=== PATIENT | male | born 1960 | race Caucasian/White ===

== ENCOUNTER 2016-10-18 09:06 | Emergency (ER) | payer OTHER ==
[~2016-10-18] VITALS: Wt 82.0 kg
[~2016-10-18 09:06] MED LIST: AMLO-147 PO; ASPI-664 PO; BENA20TA48 PO; BUPR200T PO; CARI350T PO; CEPH500C PO; CLIN-73 PO; DOXE50CA PO; GABA300C16 PO; HYDR-762 PO; IBUP-1542 PO; IBUP800T25 PO; LAMO150T PO; OXYC-209 PO; SERT50TA PO; TRAM50TA2 PO; ZOC20 PO
[2016-10-18] MEDS ORDERED: SOD CHLORIDE 0.9% 1,000 ML IV STA (10:47)
[2016-10-18] MEDS ORDERED: CLINDAMYCIN 600 MG/D5W (PMX) 50 ML IVPB SCH (11:00)
[2016-10-18] MEDS ORDERED: CLINDAMYCIN 300 MG INJ IM ONE (11:30)
[2016-10-18 11:32] LABS: ALBUMIN 3.9 g/dl (3.3-4.9)
[2016-10-18 11:33] LABS: BASOPHIL # 0.1 10^3/ul (0.0-0.1); BASOPHILS % 0.6 % (0.0-2.0); EOSINOPHILS # 0.3 10^3/ul (0.0-0.5); HEMATOCRIT 39.4 % (42.0-52.0); LYMPHOCYTES # 2.1 10^3/ul (0.8-2.9); LYMPHOCYTES % 16.3 % (15.0-51.0); MEAN CORPUSCULAR HEMOGLOBIN 29.7 pg (29.0-33.0); MEAN PLATELET VOLUME 8.4 fl (7.4-10.4); MONOCYTES % 7.9 % (0.0-11.0); NEUTROPHIL # 9.5 10^3/ul (1.6-7.5); NEUTROPHILS % 73.2 % (39.0-77.0); PLATELET COUNT 348 10^3/UL (140-440); POTASSIUM 5.1 mmol/L (3.5-5.1); RED BLOOD COUNT 4.37 10^6/ul (4.70-6.10); RED CELL DISTRIBUTION WIDTH 16.2 % (11.5-14.5); UNCORRECTED WBC 12.9 10^3/ul (4.8-10.8); WHITE BLOOD COUNT 12.9 10^3/ul (4.8-10.8)
[2016-10-18 11:35] LABS: ALBUMIN/GLOBULIN RATIO 1.25; BILIRUBIN,INDIRECT 0.1 mg/dl (0-1.1); BILIRUBIN,TOTAL 0.1 mg/dl (0.2-1.3); CALCIUM 9.2 mg/dl (8.4-10.2); CREATININE 0.82 mg/dl (0.61-1.24)
[2016-10-18 11:36] LABS: CONDITION 1; LH ANALYZER COMMENTS 1
[2016-10-18] MEDS ORDERED: CEPH-443 PO (11:55)
[2016-10-18] MEDS ORDERED: CLIN-73 PO (11:55)
[2016-10-18 12:18] VITALS: BP 160/82; PULSE 78; RESP 20; TEMP 98.2
[2016-10-18] MEDS ORDERED: DIPHTH/TET/ACEL PERTUSS (ADULT) 0.5 ML VIAL IM* ONE (12:30)
--- NOTE | 2016-10-18 13:45 | ERD ---
DATE OF SERVICE: 10/18/2016 HISTORY OF PRESENT ILLNESS: The patient is a 55-year-old male coming in complaining of an abscess t o his right antecubital space and mid back. Patient states it has been there for the last 4 weeks. He has been seen by his primary doctor and given Bactrim. He has been taking Bactrim for 2 weeks. He has not missed a dose. He has no fevers. He states that there is no improvement to the abscess . He is right hand dominant. He does not recall his last tetanus shot. He has not taken medicatio ns today. He states he has occasional chills, but denies any fevers. MEDICAL HISTORY: Orthopedic complications and surgeries. ALLERGIES TO MEDICATIONS: DENIES. SURGICAL HISTORY: Orthopedic surgery. SOCIAL HISTORY: He uses IV drugs. REVIEW OF SYSTEMS: A 12-point review of systems was done. Refer to HPI for positives, all other sy stems negative. PHYSICAL EXAMINATION VITAL SIGNS: Temperature is 98.9, pulse 88, blood pressure is 170/85, respiratory rate 20, O2 satur ation 99% on room air. Pain intensity 8/10. GENERAL: The patient is well-appearing, well-nourished, no acute distress. HEART: Regular rate and rhythm. No murmurs, clicks, rubs or gallops. No S3 or S4. CHEST: Clear to auscultation bilaterally. There are no rales, wheezes or rhonchi. HEENT: Atraumatic. Conjunctivae are pink. Pupils equal, round, and reactive to light. There is no s cleral icterus. Tympanic membranes clear bilaterally. Oropharynx clear. No nystagmus or photophobia . EXTREMITIES: Equal pulses bilaterally. There is no peripheral clubbing, cyanosis or edema. No focal swelling or erythema. Full range of motion. Grossly neurovascularly intact. SKIN: There is a fluctuant, erythematous mass noted on the right antecubital space. No lymphatic s treaking. Compartments are soft. Pulses intact. EMERGENCY ROOM COURSE: This case was reviewed with Dr. Desir, given this is technically a failed outpatient antibiotic treatment for abscess; however, the patient has not been receiving broad spec trum antibiotics and so I did not feel that there was indication for admission at this time. Dr. Luh garcia also agreed with the assessment and plan. Patient will have blood work drawn as well as cult ures, and given antibiotics in the ER, with discharge of stronger broad spectrum antibiotics and abiola se followup. Blood work was drawn in the ER. Patient's CBC showed a white count of 12.9 with no shift. CMP was within normal limits. Patient's blood was sent for culture. The patient also received an IM inject ion of clindamycin while in the ER. An and I and D was performed. A small amount of 1 mL of plain lidocaine was injected superficially into the skin. A vertical incision was made and purulent disch arge was extracted from the site. Given there is high vasculature in that area, no undermining was done to break up locules. Site was re-cleaned and pressure bandage was applied. Also, tetanus was given in the ER. DIAGNOSIS: Abscess. MEDICAL DECISION MAKING: Patient does not have signs of lymphatic infection. The patient is afebri le and does not have a significant white count seen on CBC. I did not feel that there was indicatio n for IV antibiotics with admission at this time; however, patient was given strict ER precautions t o return in 2 days to evaluate, or sooner should symptoms change or worsen. DISCHARGE: The patient is discharged stable. Patient given a prescription for clindamycin and Kefl ex, and told to continue taking Bactrim at home. Patient was told if symptoms progress or worsen to return to the ER. All other questions answered at time of discharge. Discharge summary given at t he time of departure. Patient understood and complied with plan. Dictated By: MASON COULTER/LISBETH Conf#: [id number] DID#: [id number]
== END 2016-10-18 12:19 | disposition home or self-care (01) ==
LOC: FTE 09:06
DX: L02.212 Cutaneous abscess of back [any part, except buttock and flank] (principal); F17.210 Nicotine dependence, cigarettes, uncomplicated; I10 Essential (primary) hypertension; Z23 Encounter for immunization
CPT/HCPCS: 10060; 36415; 80053; 85025; 87040; 90471; 90715; 96372; J7030; Z7502; Z7610

== ENCOUNTER 2016-12-04 20:56 | Inpatient (IN) | payer OTHER ==
[~2016-12-04] VITALS: Ht 167.6 cm; Wt 78.0 kg
[~2016-12-04 20:56] MED LIST changes: +CEPH-443 PO; +SIMV20TA2 PO; -ZOC20 PO
[2016-12-04] MEDS ORDERED: ONDANSETRON 4 MG INJ IV STA (22:08)
[2016-12-04] MEDS ORDERED: morphine 4 MG/ML VIAL IV STA (22:08)
[2016-12-04 22:57] LABS: ADD SCAN DIFF NO
[2016-12-04 22:59] LABS: BASOPHIL # 0.1 10^3/ul (0.0-0.1); HEMATOCRIT 36.8 % (42.0-52.0); HEMOGLOBIN 11.7 g/dl (14.0-18.0); LYMPHOCYTES # 1.9 10^3/ul (0.8-2.9); LYMPHOCYTES % 23.5 % (15.0-51.0); MEAN CORPUSCULAR HEMOGLOBIN 29.6 pg (29.0-33.0); MEAN CORPUSCULAR HGB CONC 31.8 g/dl (32.0-37.0); MEAN CORPUSCULAR VOLUME 93.2 fl (82.0-101.0); MEAN PLATELET VOLUME 10.9 fl (7.4-10.4); MONOCYTE # 1.3 10^3/ul (0.3-0.9); NEUTROPHIL # 4.9 10^3/ul (1.6-7.5); NEUTROPHILS % 59.4 % (39.0-77.0); PLATELET COUNT 248 10^3/UL (140-415); RED BLOOD COUNT 3.95 10^6/ul (4.70-6.10); RED CELL DISTRIBUTION WIDTH 14.1 % (11.5-14.5); WHITE BLOOD COUNT 8.2 10^3/ul (4.8-10.8)
[2016-12-04 23:13] LABS: ALBUMIN 4.3 g/dl (3.3-4.9)
[2016-12-04 23:14] LABS: POTASSIUM 3.8 mmol/L (3.5-5.1)
[2016-12-04 23:16] LABS: BILIRUBIN,INDIRECT 0.4 mg/dl (0-1.1); BILIRUBIN,TOTAL 0.4 mg/dl (0.2-1.3); CREATININE 2.37 mg/dl (0.61-1.24)
[2016-12-04 23:17] LABS: ALBUMIN/GLOBULIN RATIO 1.13; CALCIUM 9.6 mg/dl (8.4-10.2); TOTAL PROTEIN 8.1 g/dl (6.1-8.1)
[2016-12-04 23:26] LABS: INR 1.08; PT RATIO 1.1
[2016-12-04 23:27] LABS: PARTIAL THROMBOPLASTIN TIME 29.6 Sec (25.0-35.0)
--- NOTE | 2016-12-04 23:37 | RADRPT ---
PROCEDURE: CT brain without contrast CLINICAL INDICATION: Status post fall. Post traumatic headaches. TECHNIQUE: A CT of the brain was performed utilizing axial sections from the skull base through th e vertex without contrast. Sagittal and coronal images were also reformatted. The exam CTDIvol = 43. 68 mGy and DLP = 810.25 mGy-cm. COMPARISON: 04/10/2016 FINDINGS: No acute intracranial hemorrhage is identified. There is no mass effect or midline shift. No extra -axial fluid collection is seen. The ventricles and sulci are within normal limits for size and con figuration. The density of the brain is within normal limits. Mccauley-white differentiation is preser jennifer. The osseous structures are unremarkable. The mastoid air cells and visualized paranasal sinuses are clear. RPTAT:HJJR IMPRESSION: Unremarkable noncontrast CT of the brain without change from 04/10/2016. Physician Ryan Date Time Electronically viewed and signed by Physician Ryan on 12/04/2016 23:36 /
--- NOTE | 2016-12-04 23:43 | RADRPT ---
PROCEDURE: CT cervical spine without contrast. CLINICAL INDICATION: Injury, status post fall. Post traumatic neck pain TECHNIQUE: CT of the cervical spine without contrast was performed. Axial images were obtained th rough the cervical spine and reformatted at 1.25 mm slice thickness. Coronal and sagittal images wer e reformatted. Exam CTDIvol = 22.33 mGy and DLP = 569.21 mGy-cm. COMPARISON: None available. FINDINGS: Vertebral bodies: Anterior fusion plate and screws at C5, C6 and C7 are present. Axial stature is p reserved at every level as is the lordosis. There is normal mineralization and trabeculation. The C1 ring is intact and the predental space is normal. Central canal and cervical spinal cord: No abnormal density within the spinal cord is evident and no intraspinal masses are delineated. C2-3: The disk is within normal limits. Moderate left and mild right facet arthropathy is present. The uncovertebral joints and foramina are unremarkable.No posterior element fracture or paraspinal soft tissue abnormality is seen C3-4: The disk is within normal limits. Moderate bilateral facet arthropathy is noted. The uncover tebral joints and foramina are unremarkable. No posterior element fracture or paraspinal soft tissue abnormality is seen C4-5: Small broad-based disk and osteophyte complex without central stenosis. Moderate bilateral f acet arthropathy is demonstrated. The uncovertebral joints and foramina are unremarkable. No pressurised container filler ior element fracture or paraspinal soft tissue abnormality is seen C5-6: Degenerative disk narrowing with anterior fusion hardware and screws normal in position and w ithout central stenosis. Moderate bilateral facet arthropathy is present. The uncovertebral joints and foramina are unremarkable. No posterior element fracture or paraspinal soft tissue abnormalit y is seen C6-7: Moderate degenerative disk narrowing is present with the anterior fusion screws unremarkable . The facet joints are normal. Uncovertebral hypertrophy causes moderate to severe right foraminal stenosis the left foramen is patent. No posterior element fracture or paraspinal soft tissue abno rmality is seen C7-T1: There is subtle lucency surrounding the left screw concerning for hardware failure with separ ation of the fixation plate from the anterior vertebral body at the C7 level by approximately 5 mm. Moderate facet arthropathy is present. The uncovertebral joints and foramina are unremarkable. No p osterior element fracture or paraspinal soft tissue abnormality is seen Non spine related findings: Atherosclerotic calcification of the carotid bifurcations is noted RPTAT:HJJR IMPRESSION: 1. No evidence of cervical spine fracture or subluxation. 2. Subtle lucency surrounding the anterior fusion screws at C7 with separation of the anterior fusi on plate by 5 mm relative to the anterior C7 vertebral body raises concern for hardware loosening. 3. Uncovertebral hypertrophy contributing to right foraminal stenosis at the C6-7 level. 4. Facet arthropathy at multiple levels as described above. Physician Ryan Date Time Electronically viewed and signed by Physician Ryan on 12/04/2016 23:42 /
--- NOTE | 2016-12-04 23:49 | RADRPT ---
PROCEDURE: CT thoracic spine without contrast. CLINICAL INDICATION: Post traumatic back pain after a fall. TECHNIQUE: CT of the thoracic spine was performed. Axial images were obtained and reformatted at 2.5 mm slice thickness. Coronal and sagittal images were reformatted. Exam CTDIvol = 27.92 mGy and DLP = 1062.21 mGy-cm. COMPARISON: None available. FINDINGS: Vertebral bodies: There is preservation of attenuation, mineralization and bony architecture. The thoracic kyphosis is preserved. Multiple endplate Schmorl's nodes are identified most pronounced in the superior T7 and T8 levels. Thoracic spinal cord: No abnormal densities seen within the spinal canal.. T1-2: No discogenic abnormality of significance is seen and there is no central canal or foraminal s tenosis. The posterior elements are unremarkable. T2-3: No discogenic abnormality of significance is seen and there is no central canal or foraminal s tenosis. The facet joints are intact. T3-4: Moderate degenerative disk narrowing is present with bilateral facet arthropathy and trace an terolisthesis but no evidence of significant stenosis T4-5: No discogenic abnormality of significance is seen and there is no facet arthropathy, central canal or foraminal stenosis. T5-6: Mild degenerative disk narrowing with endplate sclerosis and subcortical cyst formation but n o disk protrusion or central stenosis. There is no significant facet arthropathy T6-7: Slight widening of the disk space because of the T7 endplate Schmorl's node with no evidence of disk protrusion or central stenosis. The facet joints and foramen are unremarkable. T7-8: Endplate sclerosis with Schmorl's nodes and disk bulging but no disk protrusion, facet arthrop athy or central canal stenosis T8-9: Mild disk space narrowing with endplate sclerosis and small osteophyte and disk complex withou t stenosis. Mild facet arthropathy is present. There is no posterior element fracture T9-10: Callus formation about a healing medial right tenth rib fracture is noted. Degenerative dis k narrowing is mild without central stenosis. The facet joints and posterior elements are unremarka ble T10-11: Callus formation about a healing medial right eleventh rib fractures present. There is mild degenerative disk narrowing without disk protrusion or central stenosis. 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 No evidence of acute post traumatic thoracic spine abnormality. 2. Multiple endplate Schmorl's nodes and mid thoracic degenerative disk disease as well as facet ar thropathy without significant stenosis at any level. 3. Callus formation about healing right medial tenth and eleventh rib fractures. Physician Ryan Date Time Electronically viewed and signed by Yg Martinez Physician on 12/04/2016 23:48 JR/
--- NOTE | 2016-12-05 02:15 | ERD ---
ER Documentation Chief Complaint Date/Time DATE: 12/05/16 TIME: 02:10 Chief Complaint Pt with back and neck pain x 5 days. (WILTON ADORNO PA-C) HPI 56-year-old male with history of chronic neck pain with multiple surgeries, hypertension, and reported TIA approximately 7 months ago presents to the emergency department for 7 out of 10 headache, dizziness, and multiple falls intermittently for the past 4 months. The patient states he has fallen onto his head multiple times. The patient denies fevers, chills, nausea, vomiting, diarrhea, urinary symptoms, or other symptoms at this time. 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 The patient takes trazodone, methadone, and lisinopril among other medications which she cannot recall at this time. (WILTON ADORNO PA-C) ROS All systems reviewed and are negative except as per history of present illness. (WILTON ADORNO PA-C) Medications Home Meds Active Scripts Clindamycin Hcl* (Clindamycin Hcl*) 300 Mg Capsule, 300 MG PO TID for 10 Days, CAP Prov:PRITI ESTRADA PA-C 10/18/16 Cephalexin* (Keflex*) 500 Mg Capsule, 500 MG PO QID for 7 Days, CAP Prov:PRITI ESTRADA PA-C 10/18/16 Tramadol HCl (Tramadol HCl) 50 Mg Tablet, 50 MG PO Q6 Y for SEVERE PAIN LEVEL 7- 10, #20 TAB Prov:KIMI CISNEROS NP 07/20/16 Ibuprofen* (Motrin*) 800 Mg Tab, 800 MG PO Q6H Y for PAIN AND OR ELEVATED TEMP, #30 TAB Prov:KIMI CISNEROS NP 07/20/16 Ibuprofen* (Motrin*) 600 Mg Tab, 600 MG PO Q6H Y for PAIN AND OR ELEVATED TEMP, #30 TAB Prov:KIMI CISNEROS NP 07/12/16 Oxycodone HCl/Acetaminophen (Percocet 10-325 mg Tablet) 1 Each Tablet, 1 EACH PO Q6 Y for SEVERE PAIN LEVEL 7-10, #10 TAB Prov:KIMI CISNEROS NP 07/12/16 Clindamycin Hcl* (Clindamycin Hcl*) 300 Mg Capsule, 300 MG PO TID for 10 Days, CAP Prov:ANIBALJERZYKIMI FRANTZ Baker [employer] DES[employer] 07/12/16 Cephalexin* (Cephalexin*) 500 Mg Capsule, 500 MG PO Q8 for 7 Days, CAP Prov:JOSE DAVID YANG 06/25/16 Hydrocodone Bit-Acetaminophen* (Erie*) 10-325 Mg Tablet, 1 TAB PO Q6H for PAIN , #40 TAB Prov:NATI BABB [employer] DES[employer] ENGINEER 04/12/16 Reported Medications Doxepin Hcl* (Doxepin Hcl*) 50 Mg Capsule, 50 MG PO HS, CAP 06/23/16 Amlodipine Besylate* (Amlodipine Besylate*) 10 Mg Tablet, 10 MG PO DAILY, #30 TAB 06/23/16 Benazepril Hcl* (Benazepril Hcl*) 20 Mg Tablet, 20 MG PO DAILY, #30 TAB 06/23/16 Sertraline Hcl* (Zoloft*) 50 Mg Tablet, 50 MG PO DAILY, #30 TAB 06/23/16 Lamotrigine* (Lamotrigine*) 150 Mg Tablet, 150 MG PO QHS, TAB 06/23/16 Bupropion Hcl* (Bupropion Hcl SR*) 200 Mg Tablet.sa, 200 MG PO BID, TAB.SA 06/23/16 Aspirin (Low Dose Aspirin) 81 Mg Tablet.dr, 81 MG PO DAILY, #30 TAB 12/15/15 Simvastatin (Simvastatin) 20 Mg Tablet, 20 MG PO DAILY 05/27/15 Gabapentin* (Gabapentin*) 300 Mg Capsule, 900 MG PO TID 05/27/15 Carisoprodol* (Soma*) 350 Mg Tablet, 350 MG PO BID, TAB 07/17/14 Allergies Allergies: Coded Allergies: No Known Allergy (Unverified , 08/09/16) PMhx/Soc History of Surgery: Yes (neck plate) Anesthesia Reaction: No Hx Neurological Disorder: No Hx Respiratory Disorders: Yes Hx Cardiac Disorders: Yes (HTN) Hx Psychiatric Problems: No Hx Miscellaneous Medical Probl: Yes (chronic back pain,ulcerative colitis, carpal tunnel, bilater ) Hx Alcohol Use: No (QUIT OVER 20 YEARS AGO) Hx Substance Use: No Hx Tobacco Use: Yes (1PK/DAY) Smoking Status: Current every day smoker (WILTON ADORNO PA-C) FmHx Noncontributory for chief complaint (WILTON ADORNO PA-C) Physical Exam Vitals Vital Signs Date Time Temp Pulse Resp B/P Pulse Ox O2 Delivery O2 Flow Rate FiO2 12/04/16 21:12 98.4 94 18 139/69 100 (CRISTOBAL CLEARY MD) Physical Exam Const: The patient appears to be slightly altered but he is alert and oriented to time, person, and place. Head: Atraumatic Eyes: Normal Conjunctiva ENT: Normal External Ears, Nose and Mouth. Neck: Full range of motion..~ No meningismus. Resp: Clear to auscultation bilaterally Cardio: Regular rate and rhythm, no murmurs Abd: Soft, non tender, non distended. Normal bowel sounds Skin: No petechiae or rashes Back: No midline or flank tenderness Ext: No cyanosis, or edema Neur: Awake and alert. The patient has decreased strength in his lower extremities. Cranial nerves are intact. Psych: Normal Mood and Affect (WILTON ADORNO PA-C) Result Diagram: 12/04/16224912/04/162249 Results 24 hrs Laboratory Tests Test 12/04/16 22:50 12/05/16 00:00 12/05/16 02:30 White Blood Count 8.210^3/ul Red Blood Count 3.9510^6/ul Hemoglobin 11.7g/dl Hematocrit 36.8% Mean Corpuscular Volume 93.2fl Mean Corpuscular Hemoglobin 29.6pg Mean Corpuscular Hemoglobin Concent 31.8g/dl Red Cell Distribution Width 14.1% Platelet Count 97258^3/UL Mean Platelet Volume 10.9fl Neutrophils % 59.4% Lymphocytes % 23.5% Monocytes % 16.0% Eosinophils % 0.0% Basophils % 1.0% Nucleated Red Blood Cells % 0.0/100WBC Neutrophils # 4.910^3/ul Lymphocytes # 1.910^3/ul Monocytes # 1.310^3/ul Eosinophils # 0.010^3/ul Basophils # 0.110^3/ul Nucleated Red Blood Cells # 0.010^3/ul Prothrombin Time 14.0Sec Prothrombin Time Ratio 1.1 INR International Normalized Ratio 1.08 Activated Partial Thromboplast Time 29.6Sec Sodium Level 142mmol/L Potassium Level 3.8mmol/L Chloride Level 101mmol/L Carbon Dioxide Level 22mmol/L Anion Gap 23 Blood Urea Nitrogen 28mg/dl Creatinine 2.37mg/dl Glucose Level 113mg/dl Calcium Level 9.6mg/dl Total Bilirubin 0.4mg/dl Direct Bilirubin 0.00mg/dl Indirect Bilirubin 0.4mg/dl Aspartate Amino Transf (AST/SGOT) 92IU/L Alanine Aminotransferase (ALT/SGPT) 37IU/L Alkaline Phosphatase 90IU/L Total Protein 8.1g/dl Albumin 4.3g/dl Globulin 3.80g/dl Albumin/Globulin Ratio 1.13 Lipase 19U/L Urine Opiates Screen Positive Urine Barbiturates Negative Urine Amphetamines Screen Negative Urine Benzodiazepines Screen Negative Urine Cocaine Screen Negative Urine Cannabinoids Negative Lactic Acid Level 1.3mmol/L Prostate Specific Antigen 0.7ng/ml Thyroid Stimulating Hormone (TSH) 0.593MIU/L Current Medications Medications (Trade) Dose Ordered Sig/Umer Route PRN Reason Start Time Stop Time Status Last Admin Dose Admin Morphine Sulfate (morphine) 4 mg ONCE STAT IV 12/04/16 22:08 12/04/16 22:19 DC 12/04/16 22:27 Ondansetron HCl 4 mg 4 mg ONCE STAT IV 12/04/16 22:08 12/04/16 22:19 DC 12/04/16 22:27 Sodium Chloride (NS) 1,000 ml @ 1,000 mls/hr Q1H ONCE IV 12/05/16 02:30 12/05/16 03:29 DC 12/05/16 03:13 Ondansetron HCl (Zofran Inj) 4 mg BRIDGE ORDER PRN IV NAUSEA AND/OR VOMITING 12/05/16 02:30 12/05/16 05:40 DC Acetaminophen (Tylenol Tab) 650 mg ER BRIDGE PRN PO MILD PAIN/FEVER 12/05/16 02:30 12/05/16 05:40 DC (CRISTOBAL CLEARY MD) Procedures/MDM EMERGENCY DEPARTMENT COURSE / MEDICAL DECISION MAKING: This is a 56-year-old male who comes to the emergency room secondary to complaints of multiple falls, headache, and neck pain.. The patient was given IV fluids, IV morphine in the department. On re-evaluation , the patient was feeling improved. Lab results reviewed and showed increase in BUN and creatinine concerning for acute kidney issues. The patient is slightly anemic. Radiology: PROCEDURE: CT brain without contrast CLINICAL INDICATION: Status post fall. Post traumatic headaches. TECHNIQUE: A CT of the brain was performed utilizing axial sections from the skull base through the vertex without contrast. Sagittal and coronal images were also reformatted. The exam CTDIvol = 43.68 mGy and DLP = 810.25 mGy-cm. COMPARISON: 04/10/2016 FINDINGS: No acute intracranial hemorrhage is identified. There is no mass effect or midline shift. No extra-axial fluid collection is seen. The ventricles and sulci are within normal limits for size and configuration. The density of the brain is within normal limits. Mccauley-white differentiation is preserved. The osseous structures are unremarkable. The mastoid air cells and visualized paranasal sinuses are clear. RPTAT:HJJR IMPRESSION: Unremarkable noncontrast CT of the brain without change from 04/10/2016. Physician Ryan Date Time Electronically viewed and signed by Physician Ryan on 12/04/2016 23:36 JR/ CC: WILTON ADORNO PA-C PROCEDURE: CT cervical spine without contrast. CLINICAL INDICATION: Injury, status post fall. Post traumatic neck pain TECHNIQUE: CT of the cervical spine without contrast was performed. Axial images were obtained through the cervical spine and reformatted at 1.25 mm slice thickness. Coronal and sagittal images were reformatted. Exam CTDIvol = 22.33 mGy and DLP = 569.21 mGy-cm. COMPARISON: None available. FINDINGS: Vertebral bodies: Anterior fusion plate and screws at C5, C6 and C7 are present. Axial stature is preserved at every level as is the lordosis. There is normal mineralization and trabeculation. The C1 ring is intact and the predental space is normal. Central canal and cervical spinal cord: No abnormal density within the spinal cord is evident and no intraspinal masses are delineated. C2-3: The disk is within normal limits. Moderate left and mild right facet arthropathy is present. The uncovertebral joints and foramina are unremarkable. No posterior element fracture or paraspinal soft tissue abnormality is seen C3-4: The disk is within normal limits. Moderate bilateral facet arthropathy is noted. The uncovertebral joints and foramina are unremarkable. No posterior element fracture or paraspinal soft tissue abnormality is seen C4-5: Small broad-based disk and osteophyte complex without central stenosis. Moderate bilateral facet arthropathy is demonstrated. The uncovertebral joints and foramina are unremarkable. No posterior element fracture or paraspinal soft tissue abnormality is seen C5-6: Degenerative disk narrowing with anterior fusion hardware and screws normal in position and without central stenosis. Moderate bilateral facet arthropathy is present. The uncovertebral joints and foramina are unremarkable. No posterior element fracture or paraspinal soft tissue abnormality is seen C6-7: Moderate degenerative disk narrowing is present with the anterior fusion screws unremarkable. The facet joints are normal. Uncovertebral hypertrophy causes moderate to severe right foraminal stenosis the left foramen is patent. No posterior element fracture or paraspinal soft tissue abnormality is seen C7-T1: There is subtle lucency surrounding the left screw concerning for hardware failure with separation of the fixation plate from the anterior vertebral body at the C7 level by approximately 5 mm. Moderate facet arthropathy is present. The uncovertebral joints and foramina are unremarkable. No posterior element fracture or paraspinal soft tissue abnormality is seen Non spine related findings: Atherosclerotic calcification of the carotid bifurcations is noted RPTAT:HJJR IMPRESSION: 1. No evidence of cervical spine fracture or subluxation. 2. Subtle lucency surrounding the anterior fusion screws at C7 with separation of the anterior fusion plate by 5 mm relative to the anterior C7 vertebral body raises concern for hardware loosening. 3. Uncovertebral hypertrophy contributing to right foraminal stenosis at the C6 -7 level. 4. Facet arthropathy at multiple levels as described above. Physician Ryan Date Time Electronically viewed and signed by Physician Ryan on 12/04/2016 23:42 JR/ CC: WILTON ADORNO PA-C PROCEDURE: CT thoracic spine without contrast. CLINICAL INDICATION: Post traumatic back pain after a fall. TECHNIQUE: CT of the thoracic spine was performed. Axial images were obtained and reformatted at 2.5 mm slice thickness. Coronal and sagittal images were reformatted. Exam CTDIvol = 27.92 mGy and DLP = 1062.21 mGy-cm. COMPARISON: None available. FINDINGS: Vertebral bodies: There is preservation of attenuation, mineralization and bony architecture. The thoracic kyphosis is preserved. Multiple endplate Schmorl's nodes are identified most pronounced in the superior T7 and T8 levels. Thoracic spinal cord: No abnormal densities seen within the spinal canal.. T1-2: No discogenic abnormality of significance is seen and there is no central canal or foraminal stenosis. The posterior elements are unremarkable. T2-3: No discogenic abnormality of significance is seen and there is no central canal or foraminal stenosis. The facet joints are intact. T3-4: Moderate degenerative disk narrowing is present with bilateral facet arthropathy and trace anterolisthesis but no evidence of significant stenosis T4-5: No discogenic abnormality of significance is seen and there is no facet arthropathy, central canal or foraminal stenosis. T5-6: Mild degenerative disk narrowing with endplate sclerosis and subcortical cyst formation but no disk protrusion or central stenosis. There is no significant facet arthropathy T6-7: Slight widening of the disk space because of the T7 endplate Schmorl's node with no evidence of disk protrusion or central stenosis. The facet joints and foramen are unremarkable. T7-8: Endplate sclerosis with Schmorl's nodes and disk bulging but no disk protrusion, facet arthropathy or central canal stenosis T8-9: Mild disk space narrowing with endplate sclerosis and small osteophyte and disk complex without stenosis. Mild facet arthropathy is present. There is no posterior element fracture T9-10: Callus formation about a healing medial right tenth rib fracture is noted. Degenerative disk narrowing is mild without central stenosis. The facet joints and posterior elements are unremarkable T10-11: Callus formation about a healing medial right eleventh rib fractures present. There is mild degenerative disk narrowing without disk protrusion or central stenosis. Mild facet arthropathy is present T11-12: No discogenic abnormality of significance is seen and there is no facet arthropathy, central canal or foraminal stenosis T12-L1: No discogenic abnormality of significance is seen and there is no facet arthropathy, central canal or foraminal stenosis Non spine related findings: Subpleural bullous emphysematous changes of the upper lobes is present RPTAT:HJJR IMPRESSION: 1. No evidence of acute post traumatic thoracic spine abnormality. 2. Multiple endplate Schmorl's nodes and mid thoracic degenerative disk disease as well as facet arthropathy without significant stenosis at any level. 3. Callus formation about healing right medial tenth and eleventh rib fractures. Physician Ryan Date Time Electronically viewed and signed by Physician Ryan on 12/04/2016 23:48 JR/ CC: WILTON ADORNO PA-C The primary diagnosis is acute kidney injury. This case was discussed with Dr. Cristobal Cleary, supervising ED physician who agreed with the ED course and spoke with the admitting physician. The patient will be admitted to the hospital. (WILTON ADORNO PA-C) MDM patient is a 56-year-old male who presents with complaint of loss of balance and frequent falls. He has normal neuro exam and gait in the ER. Head CT and C-spine are unremarkable. He is incidentally found to have acute renal injury. He is on lisinopril for hypertension, which is well controlled at this time. His CK was sent and is elevated at 2400. I suspect that he may have had rhabdomyolysis related to drug use or prolonged downtime leading to kidney injury. A bedside ultrasound was performed by myself and interpreted as showing no urinary retention. (CRISTOBAL CLEARY MD) Departure Diagnosis: Primary Impression: Acute kidney injury Additional Impression: Rhabdomyolysis Condition: Fair WILTON ADORNO PA-C Dec 05, 2016 02:15 CRISTOBAL CLEARY MD Dec 05, 2016 06:15
[2016-12-05] MEDS ORDERED: ACETAMINOPHEN 325 MG TAB PO PRN (02:30)
[2016-12-05] MEDS ORDERED: SOD CHLORIDE 0.9% 1,000 ML IV ONE (02:30)
[2016-12-05] MEDS ORDERED: ONDANSETRON 4 MG INJ IV PRN ×2 (02:30→05:30)
--- NOTE | 2016-12-05 02:39 | HP ---
Date/Time of Note Date/Time of Note DATE: 12/05/16 TIME: 02:38 Assessment/Plan VTE Prophylaxis VTE Prophylaxis Intervention: ambulation Assessment/Plan Assessment/Plan 1) Acute kidney injury - Admit to Med-Surg - Check CK to R/O Rhabdomyolysis as a possible cause of sharply elevated Creatinine - Minimize the number of medications patient is on, particularly the more nephrotoxic medications 2) Hypoxemia, mild, requiring O2 via NC to maintain saturation at 92% and above - O2 via NC to maintain sats at 92% and above 3) Altered Mental Status, besides what we have seen in the ER, patient is having perceptual hallucinations at home, specifically when he gets up to urinate in the middle of the night - Obtain Urine Drug Screen, Alcohol Level - Consider adding: Vitamin B12, HIV, RPR, Ammonia Level, if indicated - Consider Psychiatric Tele Consult Neck Pain - possible loosening of hardware - Cervical Soft Collar for comfort 4) Paresthesias, bilateral upper extremities - Consider Neurology and/or Orthopedic/Neurosurgery Consults - Obtain previous cervical Radiologic Studies for comparison Anemia, normochromic/normocytic 5) Nocturia, 3 to 4 times per night - PSA 6) Frequent Falls x several months, possibly due to Medications. (Trazodone started about the same time as the falls started) - Minimize the number of medications patient is on - Check Urine Drug Screen - Check Urinalysis HPI/ROS Admit Date/Time Admit Date/Time 12/05/16 0229 Hx of Present Illness This 56 year old man who has a remote history of opioid abuse, currently on methodone as well as psychiatric issues requiring him to be on Seroquel and insomnia for which he started takeng Trazodone a couple of months ago, presents with a history that has changed a couple of times. Also, I am told that his mental status now is less than it was/more altered than it was when he first arrived. His RN told me that he was on the ground on his hands and knees, crawling, looking under things to find something. His initial presentation was more for back and neck pain, but then he says he has cysts on his back that are going to be removed and that he is not here for that pain. He states that he has been having frequent falls . . . initially for the past 2 months, since starting Trazodone for sleep and then for me, he states he has been falling for several months, and it is this that concerns him. He states that he gets up 3 to 4 times every night to urinate, and when he does , he automatically, now, puts both of his arms up in front of his face to protect himself. He states he thinks there is a cat in his house at night, but that hedoes not have a cat. I asked him if he wa hallucinating, and he said "no ". So I confirmed with him that he just feels "like there is a cat in the house " and he is afraid to trip on it. Just before entering his bathroom, there is a narrow little hallway. It is at about that point that he starts to feel "off balance" he feels his body turn to the right towards the wall, but then he falls to the left. He states that he has hit his head (left rastafari/ parieofrontal region) [address] and that is why he has a bogdan there. He denies fever, chills, chest pain, cough, sorth throat, nausea, vomiting or diarrhea, but he admits that he ahas lost 40 to 50 lbs in the past 6 months without trying, and he polk had some difficulty swallowing. ROS General: Admits: Has lost 40 to 50 lbs in the past 6 months without trying. Denies: Fever, Chills, Poor Appetite, Generalized Body Aches Eyes: Admits: Denies: Blurry Vision, Double Vision HENT: Admits: Denies: Ear Pain/Pressure, Runny/Stuffy Nose, Sore Throat, RInging in Ears Cardiovascular: Admits: Mild leg swelling Denies: Chest Pain, Palpitations Pulmonary: Admits: Denies: Cough, Wheeze, Shortness of Breath Gastrointestinal: Admits: Denies: Abdominal Pain, Nausea, Vomiting, Diarrhea, Blood in Stool, Black-Colored Stool Urogenital: Admits: Nocturia, 3 to 4 times per night Denies: Burning with Urination, Urinary Frequency, Blood in Urine Musculoskeletal: Admits: Chronic Nck and Back Pain, Biataeral SHoulder Pain - scheduleed to hav Rotator Cuff Surgery Denies: Joint Swelling, Muscle Pain Neurological: Admits: Numbness and tingling in both arms, nistly in his hands. Suposed to get Carpal TUnnel Surgery soon. Denies: Headache, Dizziness, Shooting Pains Integumentary: Admits: Cysts on his back that are scheduled to be removed. Denies: Rash, Itch Endocrine: Admits: Denies: Excessive Thirst, Excessive Hunger, Intolerant to Cold , Intolerant to Heat Psychiatric: Admits: Denies: Anxiety, Depression PMH/Family/Social Past Medical History HTN; Chronic Back Pain; Ulcerative Colitis; Carpal Tunnel Syndrome, bilateral Past Surgical History neck plate Social History Alcohol Use: sober (20 years) Smoking Status: Current every day smoker Drug Use: none Exam/Review of Systems Vital Signs Vitals Vital Signs Date Time Temp Pulse Resp B/P Pulse Ox O2 Delivery O2 Flow Rate FiO2 12/04/16 21:12 98.4 94 18 139/69 100 Exam Exam General: Alert, coopertive, in no aute distress. Prefers to lay back n the gurney. Eyes: Sclera White, EOMI HENT: Normocephalic/Atraumatic, External Ears/Nose Normal, Moist Mucus Membranes Neck: Supple, Trachea Midline Cardiovascular: Normal Rate, Regular Rhythm, Normal S1 and S2, No Murmur, No Extra Sounds. Radial pulse +2/4. No pedal Edema. Pulmonary: Clear to Auscultation Bilaterally, Normal Respiratory Effort, No Rales, Rhonchi or Wheezes Gastrointestinal: Normoactive Bowel Sounds, Soft, Non-Tender/Non-Distended, No Hepatosplenomegaly Appreciated, No Pulsatile Masses Urogenital: Deferred Musculoskeletal: Normal Muscle Bulk and Tone Neurological: CN II - XII Grossly Intact, Non-Focal, Speech Normal Integumentary: Normal Moisture and Temperature, Good Turgor, No Jaundice, No Rash. Healing, circulr wound ,eft rastafari, about the size of knickle Lymphatic: No Cervical Lymphadenopathy Psychiatric: Appropriate Mood and Affect, Fair Eye Contact Labs Result Diagram: 12/04/16224912/04/162249 Medications Medications Home Meds Active Scripts Clindamycin Hcl* (Clindamycin Hcl*) 300 Mg Capsule, 300 MG PO TID for 10 Days, CAP Prov:PRITI ESTRADA PA-C 10/18/16 Cephalexin* (Keflex*) 500 Mg Capsule, 500 MG PO QID for 7 Days, CAP Prov:PRITI ESTRADA PA-C 10/18/16 Tramadol HCl (Tramadol HCl) 50 Mg Tablet, 50 MG PO Q6 Y for SEVERE PAIN LEVEL 7- 10, #20 TAB Prov:KIMI CISNEROS OPTIMIZATION MANAGER 07/20/16 Ibuprofen* (Motrin*) 800 Mg Tab, 800 MG PO Q6H Y for PAIN AND OR ELEVATED TEMP, #30 TAB Prov:KIMI CISNEROS NP 07/20/16 Ibuprofen* (Motrin*) 600 Mg Tab, 600 MG PO Q6H Y for PAIN AND OR ELEVATED TEMP, #30 TAB Prov:KIMI CISNEROS OPTIMIZATION MANAGER 07/12/16 Oxycodone HCl/Acetaminophen (Percocet 10-325 mg Tablet) 1 Each Tablet, 1 EACH PO Q6 Y for SEVERE PAIN LEVEL 7-10, #10 TAB Prov:KIMI CISNEROS NP 07/12/16 Clindamycin Hcl* (Clindamycin Hcl*) 300 Mg Capsule, 300 MG PO TID for 10 Days, CAP Prov:KIMI CISNEROS NP 07/12/16 Cephalexin* (Cephalexin*) 500 Mg Capsule, 500 MG PO Q8 for 7 Days, CAP Prov:JOSE DAVID YANG 06/25/16 Hydrocodone Bit-Acetaminophen* (Wendel*) 10-325 Mg Tablet, 1 TAB PO Q6H for PAIN , #40 TAB Prov:NATI BABB NP 04/12/16 Reported Medications Doxepin Hcl* (Doxepin Hcl*) 50 Mg Capsule, 50 MG PO HS, CAP 06/23/16 Amlodipine Besylate* (Amlodipine Besylate*) 10 Mg Tablet, 10 MG PO DAILY, #30 TAB 06/23/16 Benazepril Hcl* (Benazepril Hcl*) 20 Mg Tablet, 20 MG PO DAILY, #30 TAB 06/23/16 Sertraline Hcl* (Zoloft*) 50 Mg Tablet, 50 MG PO DAILY, #30 TAB 06/23/16 Lamotrigine* (Lamotrigine*) 150 Mg Tablet, 150 MG PO QHS, TAB 06/23/16 Bupropion Hcl* (Bupropion Hcl SR*) 200 Mg Tablet.sa, 200 MG PO BID, TAB.SA 06/23/16 Aspirin (Low Dose Aspirin) 81 Mg Tablet.dr, 81 MG PO DAILY, #30 TAB 12/15/15 Simvastatin (Simvastatin) 20 Mg Tablet, 20 MG PO DAILY 05/27/15 Gabapentin* (Gabapentin*) 300 Mg Capsule, 900 MG PO TID 05/27/15 Carisoprodol* (Soma*) 350 Mg Tablet, 350 MG PO BID, TAB 07/17/14 Current Medications Medications (Trade) Dose Ordered Sig/Umer Route PRN Reason Start Time Stop Time Status Last Admin Dose Admin Morphine Sulfate (morphine) 4 mg ONCE STAT IV 12/04/16 22:08 12/04/16 22:19 DC 12/04/16 22:27 Ondansetron HCl (Zofran Inj) 4 mg ONCE STAT IV 12/04/16 22:08 12/04/16 22:19 DC 12/04/16 22:27 Procedures Procedures Laboratory Tests Test 12/04/16 22:50 White Blood Count 8.210^3/ul Red Blood Count 3.9510^6/ul Hemoglobin 11.7g/dl Hematocrit 36.8% Mean Corpuscular Volume 93.2fl Mean Corpuscular Hemoglobin 29.6pg Mean Corpuscular Hemoglobin Concent 31.8g/dl Red Cell Distribution Width 14.1% Platelet Count 65890^3/UL Mean Platelet Volume 10.9fl Neutrophils % 59.4% Lymphocytes % 23.5% Monocytes % 16.0% Eosinophils % 0.0% Basophils % 1.0% Nucleated Red Blood Cells % 0.0/100WBC Neutrophils # 4.910^3/ul Lymphocytes # 1.910^3/ul Monocytes # 1.310^3/ul Eosinophils # 0.010^3/ul Basophils # 0.110^3/ul Nucleated Red Blood Cells # 0.010^3/ul Prothrombin Time 14.0Sec Prothrombin Time Ratio 1.1 INR International Normalized Ratio 1.08 Activated Partial Thromboplast Time 29.6Sec Sodium Level 142mmol/L Potassium Level 3.8mmol/L Chloride Level 101mmol/L Carbon Dioxide Level 22mmol/L Anion Gap 23 Blood Urea Nitrogen 28mg/dl Creatinine 2.37mg/dl Glucose Level 113mg/dl Calcium Level 9.6mg/dl Total Bilirubin 0.4mg/dl Direct Bilirubin 0.00mg/dl Indirect Bilirubin 0.4mg/dl Aspartate Amino Transf (AST/SGOT) 92IU/L Alanine Aminotransferase (ALT/SGPT) 37IU/L Alkaline Phosphatase 90IU/L Total Protein 8.1g/dl Albumin 4.3g/dl Globulin 3.80g/dl Albumin/Globulin Ratio 1.13 Lipase 19U/L Procedures/[facility] EMERGENCY DEPARTMENT COURSE / MEDICAL DECISION MAKING: This is a 56-year-old male who comes to the emergency room secondary to complaints of multiple falls, headache, and neck pain.. The patient was given IV fluids, IV morphine in the department. On re-evaluation , the patient was feeling improved. Lab results reviewed and showed increase in BUN and creatinine concerning for acute kidney issues. The patient is slightly anemic. Radiology: PROCEDURE: CT brain without contrast CLINICAL INDICATION: Status post fall. Post traumatic headaches. COMPARISON: 04/10/2016 IMPRESSION: Unremarkable noncontrast CT of the brain without change from 04/10/2016. PROCEDURE: CT cervical spine without contrast. CLINICAL INDICATION: Injury, status post fall. Post traumatic neck pain COMPARISON: None available. IMPRESSION: 1. No evidence of cervical spine fracture or subluxation. 2. Subtle lucency surrounding the anterior fusion screws at C7 with separation of the anterior fusion plate by 5 mm relative to the anterior C7 vertebral body raises concern for hardware loosening. 3. Uncovertebral hypertrophy contributing to right foraminal stenosis at the C6 -7 level. 4. Facet arthropathy at multiple levels as described above. PROCEDURE: CT thoracic spine without contrast. CLINICAL INDICATION: Post traumatic back pain after a fall. COMPARISON: None available. IMPRESSION: 1. No evidence of acute post traumatic thoracic spine abnormality. 2. Multiple endplate Schmorl's nodes and mid thoracic degenerative disk disease as well as facet arthropathy without significant stenosis at any level. 3. Callus formation about healing right medial tenth and eleventh rib fractures. YUAN ALCANTAR DO Dec 05, 2016 02:39 COMPARISON: None available.
[2016-12-05 03:17] VITALS: TEMP 97.6
[2016-12-05 03:53] LABS: ADD UMIC YES; URINE BILIRUBIN (Dip) 1+ (NEGATIVE); URINE BLOOD (Dip) 2+ (NEGATIVE); URINE COLOR LT. YELLOW (YELLOW); URINE GLUCOSE (Dip) NEGATIVE (NEGATIVE); URINE KETONES (Dip) TRACE (NEGATIVE); URINE LEUKOCYTE ESTERASE (Dip) NEGATIVE (NEGATIVE); URINE NITRITE (Dip) NEGATIVE (NEGATIVE); URINE TOTAL PROTEIN (Dip) TRACE (NEGATIVE); URINE UROBILINOGEN (Dip) 0.2 E.U./dL (0.1-1.0)
[2016-12-05 04:00] VITALS: BP 121/60; RESP 16
[2016-12-05 04:10] LABS: BENZODIAZEPINES Negative (NEGATIVE)
[2016-12-05 04:12] LABS: ICTOTEST NEGATIVE (NEGATIVE)
[2016-12-05 04:14] LABS: BACTERIA,URINE MANY; SQUAMOUS EPITHELIAL CELL,UR FEW; URINE RBCS 0-2 /HPF (0)
[2016-12-05 04:21] LABS: BARBITURATES Negative (NEGATIVE); CANNABINOIDS Negative (NEGATIVE); COCAINE Negative (NEGATIVE); OPIATES Positive (NEGATIVE)
[2016-12-05 04:35] LABS: ETHANOL < 10.0 mg/dl
[2016-12-05 05:10] VITALS: Ht 167.6 cm; Wt 78.0 kg
[2016-12-05] MEDS ORDERED: NACL 0.9% 3 ML SYG IV SCH (05:30)
[2016-12-05] MEDS ORDERED: CEFTRIAXONE 1 GM/50 ML (PMX) 50 ML IVPB SCH (05:30)
[2016-12-05 05:53] LABS: PROSTATE SPECIFIC ANTIGEN 0.7 ng/ml (0.0-4.0); THYROID STIMULATING HORMONE 0.593 MIU/L (0.465-4.680)
[2016-12-05] MEDS: SOD CHLORIDE 0.9% 1,000 ML IV SCH ×5 (06:07→19:24)
[2016-12-05 07:15] LABS: CREATINE KINASE 2129 IU/L (23-200); TROPONIN-I < 0.012 ng/ml (0.00-0.12)
[2016-12-05 08:19] VITALS: BP 111/55; RESP 20
[2016-12-05] MEDS: SERTRALINE 50 MG TAB PO SCH (08:21)
[2016-12-05] MEDS: ASPIRIN (EC) 81 MG TAB PO SCH (08:21)
[2016-12-05] MEDS: BUPROPION (SR) 100 MG TAB PO SCH ×2 (08:21→21:27)
[2016-12-05] MEDS: GABAPENTIN 300 MG CAP PO SCH ×3 (08:21→21:27)
[2016-12-05] MEDS: ACETAMINOPHEN 325 MG TAB PO PRN ×2 (08:22→16:55)
[2016-12-05] MEDS: AMLODIPINE 10 MG TAB PO SCH (08:22)
[2016-12-05] MEDS ORDERED: FAMOTIDINE 20 MG INJ IV SCH ×2 (09:00)
[2016-12-05 11:11] LABS: CREATINE KINASE 1536 IU/L (23-200)
[2016-12-05 11:28] LABS: TROPONIN-I < 0.012 ng/ml (0.00-0.12)
[2016-12-05 15:14] LABS: CK-MB 22.1 ng/ml (0.0-2.4)
--- NOTE | 2016-12-05 18:00 | PN ---
DATE: 12/05/2016 PULMONARY PROGRESS NOTE HISTORY: The patient is a 56-year-old male came in overnight with weakness and falls and evidence f or acute renal failure. He has apparently had some weakness and weight loss and he was noted to be somewhat hypoxemic as well. He has no acute complaints or distress currently. He is wearing his nec k collar and pain seems reasonably controlled. PHYSICAL EXAMINATION: GENERAL: Shows him to be well-developed, well-nourished, in no acute distress. Pulse 70, respirati ons 20. Blood pressure 111/55, temperature 97.9. HEAD AND NECK: Shows neck collar in place. No acute inflammation. HEART: Regular, without murmurs or gallops. CHEST: Shows slightly diminished breath sounds at the bases, otherwise clear. ABDOMEN: Soft, nontender, without masses or organomegaly. EXTREMITIES: No clubbing, cyanosis, or edema. NEUROLOGICAL: Alert and conversant. LABORATORY DATA: CPK has been done serially and is down to 1284 from an initial 2430. Troponins ar e negative and CPK 2 is running a little under 2% of CPK. ASSESSMENT: 1. Acute renal failure, possibly secondary to rhabdomyolysis, rule out additional. 2. Mental confusion, currently fairly clear with report of nocturnal hallucinations. 3. Neck pain with upper extremity paresthesias. 4. Mild hypoxemia. 5. Falls, possibly related to neck pain, possibly related to weakness and weight loss. PLAN: We will continue but reduce somewhat the IV fluids from 250 to 150 mL per hour. Follow up CP K chemistry and blood count in the morning. If not markedly improved, consider nephrology consult. Will order renal ultrasound as well. Physical therapy evaluation, try to mobilize, evaluate his th erapy needs, evaluate for possible neurology need. Will check chest x-ray and further workup of hyp oxemia should this persist. Dictated By: GISEL GUILLERMO/LISBETH Conf#: [id number] DID#: [id number] CC: YUAN ALCANTAR MD;*EndCC*
[2016-12-05 19:00] VITALS: BP 115/64; RESP 20
--- NOTE | 2016-12-05 20:14 | RADRPT ---
PROCEDURE: Retroperitoneal US. CLINICAL INDICATION: Renal insufficiency TECHNIQUE: Multiple sonographic images of the kidneys and retroperitoneum were obtained. The imag es were reviewed on a PACS workstation. COMPARISON: No prior studies are available for comparison. FINDINGS: The kidneys are normal in size, contour, cortical thickness and cortical echogenicity. The right kidney measures 10.7 cm. The left kidney measures 10.5 cm. No kidney stones are visualized. There is no evidence for hydronephrosis. The urinary bladder is partially distended and not well seen. RPTAT: AA IMPRESSION: Unremarkable retroperitoneal ultrasound. .Ramo Khoury MD, Date Time Electronically viewed and signed by .Ramo Khoury MD, on 12/05/2016 20:14 .S/
[2016-12-05] MEDS ORDERED: DOXEPIN 50 MG CAP PO SCH (21:00)
[2016-12-05] MEDS: DOXEPIN 25 MG CAP PO SCH (21:27)
[2016-12-05] MEDS: LAMOTRIGINE 100 MG TAB PO SCH (21:27)
[2016-12-06] MEDS: SOD CHLORIDE 0.9% 1,000 ML IV SCH ×6 (00:12→21:14)
[2016-12-06 05:24] LABS: ADD SCAN DIFF NO
[2016-12-06 05:45] LABS: ALBUMIN/GLOBULIN RATIO 1.11; BILIRUBIN,INDIRECT 0.1 mg/dl (0-1.1); BILIRUBIN,TOTAL 0.1 mg/dl (0.2-1.3); CALCIUM 8.4 mg/dl (8.4-10.2); CREATININE 0.95 mg/dl (0.61-1.24); POTASSIUM 4.3 mmol/L (3.5-5.1); TOTAL PROTEIN 5.7 g/dl (6.1-8.1)
--- NOTE | 2016-12-06 07:50 | RADRPT ---
PROCEDURE: XR Chest. CLINICAL INDICATION: Hypoxemia TECHNIQUE: A single AP view of the chest was obtained. COMPARISON: X-ray dated 08/09/2016 FINDINGS: No focal airspace opacification, pleural effusion or pneumothorax is seen. The cardiomediastinal si lhouette is within normal limits for size. The osseous structures demonstrate postsurgical changes from inferior cervical fusion, partially imaged. IMPRESSION: No radiographic evidence of acute cardiopulmonary disease. RPTAT: HH .Chaparrita Dow MD, MD Date Time Electronically viewed and signed by .Chaparrita Dow MD, on 12/06/2016 07:50 .G/
[2016-12-06] MEDS: ACETAMINOPHEN 325 MG TAB PO PRN ×2 (08:08→21:25)
[2016-12-06] MEDS: BUPROPION (SR) 100 MG TAB PO SCH ×2 (08:08→21:26)
[2016-12-06] MEDS: FAMOTIDINE 20 MG TAB PO SCH (08:08)
[2016-12-06] MEDS: SERTRALINE 50 MG TAB PO SCH (08:08)
[2016-12-06] MEDS: ASPIRIN (EC) 81 MG TAB PO SCH (08:08)
[2016-12-06] MEDS: GABAPENTIN 300 MG CAP PO SCH ×3 (08:08→21:25)
[2016-12-06] MEDS: AMLODIPINE 10 MG TAB PO SCH (08:09)
[2016-12-06 08:19] LABS: BASOPHILS % 0.7 % (0.0-2.0); EOSINOPHILS # 0.3 10^3/ul (0.0-0.5); EOSINOPHILS % 4.6 % (0.0-7.0); HEMATOCRIT 33.8 % (42.0-52.0); HEMOGLOBIN 10.8 g/dl (14.0-18.0); LYMPHOCYTES # 1.8 10^3/ul (0.8-2.9); LYMPHOCYTES % 30.5 % (15.0-51.0); MEAN CORPUSCULAR HEMOGLOBIN 29.8 pg (29.0-33.0); MEAN CORPUSCULAR VOLUME 93.1 fl (82.0-101.0); MEAN PLATELET VOLUME 11.5 fl (7.4-10.4); MONOCYTE # 0.8 10^3/ul (0.3-0.9); MONOCYTES % 12.8 % (0.0-11.0); NEUTROPHILS % 51.2 % (39.0-77.0); PLATELET COUNT 200 10^3/UL (140-415); RED BLOOD COUNT 3.63 10^6/ul (4.70-6.10); RED CELL DISTRIBUTION WIDTH 13.9 % (11.5-14.5); WHITE BLOOD COUNT 5.9 10^3/ul (4.8-10.8)
[2016-12-06 08:28] VITALS: BP 134/80; RESP 20
--- NOTE | 2016-12-06 17:27 | CONS ---
Date/Time of Note Date/Time of Note DATE: 12/06/16 TIME: 17:25 Consultation Date/Type/Reason Admit Date/Time 12/05/16 0229 Date of Consultation: Dec 06, 2016 Type of Consultation: Orthopedic Hx of Present Illness This is a 56-year-old male well-known to me who has been admitted to [facility] for acute renal failure. He has undergone a CT of the cervical spine which reportedly demonstrates some loosening of his cervical spine hardware. I have ordered x-rays of the cervical spine, and will complete an orthopedic consultation tomorrow morning. Social History Alcohol Use: sober (20 years) Smoking Status: Current every day smoker Drug Use: none Exam/Review of Systems Vital Signs Vitals Vital Signs Date Time Temp Pulse Resp B/P Pulse Ox O2 Delivery O2 Flow Rate FiO2 12/06/16 08:28 98.9 70 20 134/80 97 12/05/16 03:24 Nasal Cannula 2.0 Intake and Output 12/05/16 12/05/16 12/06/16 15:00 23:00 07:00 Intake Total 2000 ml 1150 ml 2330 ml Output Total 600 ml Balance 2000 ml 1150 ml 1730 ml Results Result Diagram: 12/06/16 0720 12/06/16 0504 Results 24 hrs Laboratory Tests Test 12/06/16 05:04 12/06/16 07:20 Sodium Level 141 Potassium Level 4.3 Chloride Level 112 H Carbon Dioxide Level 25 Anion Gap 8 # Blood Urea Nitrogen 18 # Creatinine 0.95 # Glucose Level 138 Calcium Level 8.4 Total Bilirubin 0.1 L Direct Bilirubin 0.00 Indirect Bilirubin 0.1 Aspartate Amino Transf (AST/SGOT) 69 H Alanine Aminotransferase (ALT/SGPT) 48 Alkaline Phosphatase 63 Creatine Kinase 594 #H Total Protein 5.7 #L Albumin 3.0 #L Globulin 2.70 Albumin/Globulin Ratio 1.11 White Blood Count 5.9 # Red Blood Count 3.63 L Hemoglobin 10.8 L Hematocrit 33.8 L Mean Corpuscular Volume 93.1 Mean Corpuscular Hemoglobin 29.8 Mean Corpuscular Hemoglobin Concent 32.0 Red Cell Distribution Width 13.9 Platelet Count 200 Mean Platelet Volume 11.5 H Neutrophils % 51.2 Lymphocytes % 30.5 Monocytes % 12.8 H Eosinophils % 4.6 Basophils % 0.7 Nucleated Red Blood Cells % 0.0 Neutrophils # 3.0 Lymphocytes # 1.8 Monocytes # 0.8 Eosinophils # 0.3 Basophils # 0.0 Nucleated Red Blood Cells # 0.0 Medications Medications Current Medications Sodium Chloride (NS) 1,000 ml @ 100 mls/hr Q10H IV Last administered on 13:54; Admin Dose 150 MLS/HR; Start 12/05/16 at 05:14 Ondansetron HCl (Zofran Inj) 4 mg Q6H PRN IV NAUSEA AND/OR VOMITING; Start 12/05 at 05:30 Acetaminophen (Tylenol Tab) 650 mg Q6H PRN PO PAIN LEVEL 1-3 OR FEVER Last administered on 12/06/16 08:08; Admin Dose 650 MG; Start 12/05/16 at 05:30 Amlodipine Besylate (Norvasc) 10 mg DAILY PO Last administered on 12/06/16 08: 09; Admin Dose 10 MG; Start 12/05/16 at 09:00 Aspirin (Halfprin) 81 mg DAILY PO Last administered on 12/06/16 08:08; Admin Dose 81 MG; Start 12/05/16 at 09:00 Bupropion HCl (Wellbutrin Sr) 200 mg BID PO Last administered on 12/06/16 08: 08; Admin Dose 200 MG; Start 12/05/16 at 09:00 Gabapentin (Neurontin) 600 mg TID PO Last administered on 12/06/16 12:20; Admin Dose 600 MG; Start 12/05/16 at 09:00 Lamotrigine (Lamictal) 150 mg QHS PO Last administered on 12/05/16 21:27; Admin Dose 150 MG; Start 12/05/16 at 21:00 Sertraline HCl (Zoloft) 50 mg DAILY PO Last administered on 12/06/16 08:08; Admin Dose 50 MG; Start 12/05/16 at 09:00 Doxepin HCl (Sinequan) 50 mg HS PO Last administered on 12/05/16 21:27; Admin Dose 50 MG; Start 12/05/16 at 21:00 Famotidine (Pepcid) 20 mg DAILY PO Last administered on 12/06/16 08:08; Admin Dose 20 MG; Start 12/06/16 at 09:00 ELLYN CRUMP MD Dec 06, 2016 17:27
--- NOTE | 2016-12-06 18:10 | PN ---
Date/Time of Note Date/Time of Note DATE: 12/06/16 TIME: 18:06 Assessment/Plan VTE Prophylaxis VTE Prophylaxis Intervention: SCD's Lines/Catheters IV Catheter Type (from Nrsg): Peripheral IV Assessment/Plan Chief Complaint/Hosp Course 1. Acute renal failure-resolved with IVF 2. Mental confusion-resolved 3. Neck pain with upper extremity paresthesias -CT Neck shows loosening of hardware in C-spine -Consult with Dr Hernando melton, w/u in progress 4. Mild hypoxemia. 5. Falls, possibly related to neck pain, possibly 2/2 IVDU PPx- SCD's Problems: Subjective 24 Hr Interval Summary Musculoskeletal: neck pain Exam/Review of Systems Vital Signs Vitals Vital Signs Date Time Temp Pulse Resp B/P Pulse Ox O2 Delivery O2 Flow Rate FiO2 12/06/16 08:28 98.9 70 20 134/80 97 12/05/16 03:24 Nasal Cannula 2.0 Intake and Output 12/05/16 12/05/16 12/06/16 14:59 22:59 06:59 Intake Total 2000 ml 1150 ml 2330 ml Output Total 600 ml Balance 2000 ml 1150 ml 1730 ml Exam Constitutional: alert, oriented Respiratory: clear to auscultation Cardiovascular: regular rate and rhythm Gastrointestinal: soft, No distended Musculoskeletal: nl extremities to inspection Results Result Diagram: 12/06/16 0720 12/06/16 0504 Results 24 hrs Laboratory Tests Test 12/06/16 05:04 12/06/16 07:20 Sodium Level 141 Potassium Level 4.3 Chloride Level 112 H Carbon Dioxide Level 25 Anion Gap 8 # Blood Urea Nitrogen 18 # Creatinine 0.95 # Glucose Level 138 Calcium Level 8.4 Total Bilirubin 0.1 L Direct Bilirubin 0.00 Indirect Bilirubin 0.1 Aspartate Amino Transf (AST/SGOT) 69 H Alanine Aminotransferase (ALT/SGPT) 48 Alkaline Phosphatase 63 Creatine Kinase 594 #H Total Protein 5.7 #L Albumin 3.0 #L Globulin 2.70 Albumin/Globulin Ratio 1.11 White Blood Count 5.9 # Red Blood Count 3.63 L Hemoglobin 10.8 L Hematocrit 33.8 L Mean Corpuscular Volume 93.1 Mean Corpuscular Hemoglobin 29.8 Mean Corpuscular Hemoglobin Concent 32.0 Red Cell Distribution Width 13.9 Platelet Count 200 Mean Platelet Volume 11.5 H Neutrophils % 51.2 Lymphocytes % 30.5 Monocytes % 12.8 H Eosinophils % 4.6 Basophils % 0.7 Nucleated Red Blood Cells % 0.0 Neutrophils # 3.0 Lymphocytes # 1.8 Monocytes # 0.8 Eosinophils # 0.3 Basophils # 0.0 Nucleated Red Blood Cells # 0.0 Medications Medications Current Medications Sodium Chloride (NS) 1,000 ml @ 100 mls/hr Q10H IV Last administered on 13:54; Admin Dose 150 MLS/HR; Start 12/05/16 at 05:14 Ondansetron HCl (Zofran Inj) 4 mg Q6H PRN IV NAUSEA AND/OR VOMITING; Start 12/05 at 05:30 Acetaminophen (Tylenol Tab) 650 mg Q6H PRN PO PAIN LEVEL 1-3 OR FEVER Last administered on 12/06/16 08:08; Admin Dose 650 MG; Start 12/05/16 at 05:30 Amlodipine Besylate (Norvasc) 10 mg DAILY PO Last administered on 12/06/16 08: 09; Admin Dose 10 MG; Start 12/05/16 at 09:00 Aspirin (Halfprin) 81 mg DAILY PO Last administered on 12/06/16 08:08; Admin Dose 81 MG; Start 12/05/16 at 09:00 Bupropion HCl (Wellbutrin Sr) 200 mg BID PO Last administered on 12/06/16 08: 08; Admin Dose 200 MG; Start 12/05/16 at 09:00 Gabapentin (Neurontin) 600 mg TID PO Last administered on 12/06/16 12:20; Admin Dose 600 MG; Start 12/05/16 at 09:00 Lamotrigine (Lamictal) 150 mg QHS PO Last administered on 12/05/16 21:27; Admin Dose 150 MG; Start 12/05/16 at 21:00 Sertraline HCl (Zoloft) 50 mg DAILY PO Last administered on 12/06/16 08:08; Admin Dose 50 MG; Start 12/05/16 at 09:00 Doxepin HCl (Sinequan) 50 mg HS PO Last administered on 12/05/16 21:27; Admin Dose 50 MG; Start 12/05/16 at 21:00 Famotidine (Pepcid) 20 mg DAILY PO Last administered on 12/06/16 08:08; Admin Dose 20 MG; Start 12/06/16 at 09:00 JOSE DAVID YANG Dec 06, 2016 18:10
[2016-12-06 19:57] VITALS: BP 143/79; PULSE 70; RESP 18
[2016-12-06] MEDS: DOXEPIN 25 MG CAP PO SCH (21:25)
[2016-12-06] MEDS: LAMOTRIGINE 100 MG TAB PO SCH (21:54)
[2016-12-07] MEDS: SOD CHLORIDE 0.9% 1,000 ML IV SCH ×3 (00:51→20:51)
[2016-12-07 05:40] LABS: ADD SCAN DIFF NO
[2016-12-07 05:46] LABS: BASOPHILS % 0.7 % (0.0-2.0); EOSINOPHILS # 0.3 10^3/ul (0.0-0.5); EOSINOPHILS % 5.2 % (0.0-7.0); HEMATOCRIT 37.8 % (42.0-52.0); HEMOGLOBIN 12.5 g/dl (14.0-18.0); LYMPHOCYTES # 2.4 10^3/ul (0.8-2.9); MEAN CORPUSCULAR HEMOGLOBIN 29.7 pg (29.0-33.0); MEAN CORPUSCULAR HGB CONC 33.1 g/dl (32.0-37.0); MEAN CORPUSCULAR VOLUME 89.8 fl (82.0-101.0); MEAN PLATELET VOLUME 11.3 fl (7.4-10.4); MONOCYTE # 0.8 10^3/ul (0.3-0.9); MONOCYTES % 12.9 % (0.0-11.0); NEUTROPHIL # 2.3 10^3/ul (1.6-7.5); NEUTROPHILS % 39.9 % (39.0-77.0); PLATELET COUNT 243 10^3/UL (140-415); RED BLOOD COUNT 4.21 10^6/ul (4.70-6.10); RED CELL DISTRIBUTION WIDTH 13.6 % (11.5-14.5); WHITE BLOOD COUNT 5.8 10^3/ul (4.8-10.8)
[2016-12-07 05:57] LABS: POTASSIUM 3.1 mmol/L (3.5-5.1)
[2016-12-07 06:01] LABS: CALCIUM 8.8 mg/dl (8.4-10.2); CREATININE 0.74 mg/dl (0.61-1.24); MAGNESIUM 1.7 mg/dl (1.7-2.5)
--- NOTE | 2016-12-07 07:06 | CONS ---
Date/Time of Note Date/Time of Note DATE: 12/07/16 TIME: 07:02 Assessment/Plan Assessment/Plan Chief Complaint/Hosp Course This is a 56-year-old male well-known to me who has been admitted to [facility] for acute renal failure. He has undergone a CT of the cervical spine which reportedly demonstrates some loosening of his cervical spine hardware. I have ordered x-rays of the cervical spine, and will complete an orthopedic consultation tomorrow morning. Problems: Consultation Date/Type/Reason Admit Date/Time Dec 05, 2016 at 17:34 Initial Consult Date 12/06/16 Type of Consultation: Orthopedic Reason for Consultation Neck pain and headaches 24 HR Interval Summary Free Text/Dictation The patient reports that his headaches this morning are significant improved compared to last night when I initially evaluated him. I have not attempted to initiate a headache workup, which may require an MRI of his brain etc. I will defer that aspect of his care to the primary service and/or to a neurologist. 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 An x-ray of the cervical spine is pending for today. I do not think that his cervical spine complaints are due to the pseudoarthrosis, nor do I feel that he is a candidate for any intervention of a surgical nature. On examination today, the patient has some limited cervical spine range of motion. Flexion was complete extension was 50% right rotation was 75% left rotation was 25%. He has tenderness over the paracervical musculature bilaterally from C3-T1. Neurologic examination the upper extremities reveals no motor weakness, however there is decreased sensation on the lateral aspect of the right hand (C6 distribution). Reflexes are absent at the biceps triceps and periosteal radialis levels. 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 At this point I would recommend continued conservative management, and I have ordered physical therapy for additional symptomatic benefit. I will be happy to follow him in my office following his discharge. Thank you for the opportunity of participating in the care of this pleasant gentleman. Exam/Review of Systems Vital Signs Vitals Vital Signs Date Time Temp Pulse Resp B/P Pulse Ox O2 Delivery O2 Flow Rate FiO2 12/06/16 19:57 99.2 70 18 143/79 93 Room Air 12/05/16 03:24 2.0 Intake and Output 12/06/16 12/06/16 12/07/16 15:00 23:00 07:00 Intake Total 1000 ml 1040 ml 480 ml Output Total 500 ml Balance 1000 ml 1040 ml -20 ml Results Result Diagram: 12/07/1652112/07/16 05 Results 24 hrs Laboratory Tests Test 12/06/16 07:20 12/07/16 05:22 White Blood Count 5.9 # 5.8 Red Blood Count 3.63 L 4.21 L Hemoglobin 10.8 L 12.5 L Hematocrit 33.8 L 37.8 L Mean Corpuscular Volume 93.1 89.8 Mean Corpuscular Hemoglobin 29.8 29.7 Mean Corpuscular Hemoglobin Concent 32.0 33.1 Red Cell Distribution Width 13.9 13.6 Platelet Count 200 243 # Mean Platelet Volume 11.5 H 11.3 H Neutrophils % 51.2 39.9 Lymphocytes % 30.5 41.0 Monocytes % 12.8 H 12.9 H Eosinophils % 4.6 5.2 Basophils % 0.7 0.7 Nucleated Red Blood Cells % 0.0 0.0 Neutrophils # 3.0 2.3 Lymphocytes # 1.8 2.4 Monocytes # 0.8 0.8 Eosinophils # 0.3 0.3 Basophils # 0.0 0.0 Nucleated Red Blood Cells # 0.0 0.0 Sodium Level 144 Potassium Level 3.1 L Chloride Level 106 Carbon Dioxide Level 29 Anion Gap 12 Blood Urea Nitrogen 8 # Creatinine 0.74 Glucose Level 96 # Calcium Level 8.8 Phosphorus Level 3.0 Magnesium Level 1.7 Medications Medications Current Medications Sodium Chloride (NS) 1,000 ml @ 100 mls/hr Q10H IV Last administered on 13:54; Admin Dose 150 MLS/HR; Start 12/05/16 at 05:14 Ondansetron HCl (Zofran Inj) 4 mg Q6H PRN IV NAUSEA AND/OR VOMITING; Start 12/05 at 05:30 Acetaminophen (Tylenol Tab) 650 mg Q6H PRN PO PAIN LEVEL 1-3 OR FEVER Last administered on 12/06/16 21:25; Admin Dose 650 MG; Start 12/05/16 at 05:30 Amlodipine Besylate (Norvasc) 10 mg DAILY PO Last administered on 12/06/16 08: 09; Admin Dose 10 MG; Start 12/05/16 at 09:00 Aspirin (Halfprin) 81 mg DAILY PO Last administered on 12/06/16 08:08; Admin Dose 81 MG; Start 12/05/16 at 09:00 Bupropion HCl (Wellbutrin Sr) 200 mg BID PO Last administered on 12/06/16 21: 26; Admin Dose 200 MG; Start 12/05/16 at 09:00 Gabapentin (Neurontin) 600 mg TID PO Last administered on 12/06/16 21:25; Admin Dose 600 MG; Start 12/05/16 at 09:00 Lamotrigine (Lamictal) 150 mg QHS PO Last administered on 12/06/16 21:54; Admin Dose 150 MG; Start 12/05/16 at 21:00 Sertraline HCl (Zoloft) 50 mg DAILY PO Last administered on 12/06/16 08:08; Admin Dose 50 MG; Start 12/05/16 at 09:00 Doxepin HCl (Sinequan) 50 mg HS PO Last administered on 12/06/16 21:25; Admin Dose 50 MG; Start 12/05/16 at 21:00 Famotidine (Pepcid) 20 mg DAILY PO Last administered on 12/06/16 08:08; Admin Dose 20 MG; Start 12/06/16 at 09:00 ELLYN CRUMP MD Dec 07, 2016 07:06
[2016-12-07 07:58] VITALS: BP 152/73; RESP 20
[2016-12-07] MEDS: AMLODIPINE 10 MG TAB PO SCH (08:41)
[2016-12-07] MEDS: GABAPENTIN 300 MG CAP PO SCH ×3 (08:41→20:38)
[2016-12-07] MEDS: SERTRALINE 50 MG TAB PO SCH (08:43)
[2016-12-07] MEDS: FAMOTIDINE 20 MG TAB PO SCH (08:43)
[2016-12-07] MEDS: BUPROPION (SR) 100 MG TAB PO SCH ×2 (08:43→21:00)
[2016-12-07] MEDS: ASPIRIN (EC) 81 MG TAB PO SCH (08:43)
--- NOTE | 2016-12-07 10:18 | RADRPT ---
Vent Rate: 66 bpm RR Interval: 0 msec SC Interval: 134 msec QRS Duration: 92 msec QT Interval: 422 msec QTC Interval: 442 msec P-R-T [place]: 62 - 30 - 24 degrees Normal sinus rhythm Nonspecific T wave abnormality Abnormal ECG Electronically Signed By: Noé Soto [id number]
[2016-12-07] MEDS: POTASSIUM CHLORIDE (SR) 20 MEQ TAB PO SCH ×2 (10:43→13:09)
[2016-12-07] MEDS ORDERED: MAGNESIUM SULFATE 2 GM/50 ML 50 ML IVPB SCH (11:00)
--- NOTE | 2016-12-07 13:51 | CONS ---
DATE OF ADMISSION: 12/05/2016 DATE OF CONSULTATION: 12/07/2016 TYPE OF CONSULTATION: Pain Medicine REASON FOR CONSULTATION: Left head, left neck discomfort by history. HISTORY OF PRESENT ILLNESS: This is a 56-year-old gentleman who is a very poor historian, who prese nted to [facility] with left head and neck discomfort. Describes the pain as cont inual, states he had a nonsyncopal mechanical fall approximately 2 months ago. Describes the pain a s a gnawing type of discomfort, which goes down into the left side of his neck. It is not associate d with nausea, vomiting, dizziness, diplopia, disorientation, scotoma, photophobia or formication. States he has no loss of motor or sensory function in bilateral upper extremities. Does state he polk s some occasional "tickles" as he describes then in both upper extremities only. This gentleman has a past medical history of opioid abuse. He states the last time he used heroin and cocaine was barbi roximately 1 year ago. He is being seen by the [facility] for addiction, for treatment, and he i s receiving 45 mg a day of methadone at this time. However, he states he has another physician who has been treating him for pain management and he has been on a combination of different opioids incl uding Percocet, Vicodin, [place], oxycodone and morphine. He is actively taking those medications whi le he is using methadone also. States that he has had cervical spine surgery approximately 2 years ago. He was asymptomatic for a while, except for approximately 2 months ago when he did this recent fall. MEDICATIONS: Please refer to reconciliation sheets. ALLERGIES: NO KNOWN DRUG ALLERGIES. MAJOR MEDICAL PROBLEMS IN THE PAST: As per history of present illness, as well as patient states he is hypertensive. States that he is HIV negative, but hepatitis C positive. SURGICAL HISTORY: He is status post lumbar laminectomy, left shoulder repair of rotator cuff injury , C-spine stabilization surgery, details of which are unknown. SOCIAL HISTORY: He smokes, but he is somewhat a poor historian when I asked him if he drinks. In r eviewing records, he has been sober, states here for the last 20 years. FAMILY HISTORY: Noncontributory. All siblings are . Mother and father are . REVIEW OF SYSTEMS: A 12-point review of systems is unremarkable except for what is per history of p resent illness. PHYSICAL EXAMINATION: GENERAL: Shows a well-nourished, well-developed gentleman in no major acute distress. HEENT: He is normocephalic and atraumatic. Anicteric, acyanotic on examination. NECK: Bilateral carotids are brisk without bruit. CHEST: Shows bilateral clear breath sounds throughout both lung álvarez. He has no rales, rhonchi, wheezing, or rubs on examination. NEUROLOGIC: He is oriented x3. Cranial nerves II through XII are grossly intact. Motor and sensor y findings grossly within normal limits both upper extremities. Motor and sensory are grossly withi n normal limits. Flexion and extension, internal and external rotation, abduction and adduction marlen ateral upper extremities completely within normal limits. Oculocephalics are full. Range of motion of his neck in flexion, extension, internal and external rotation to grossly within normal limits. LABORATORY TESTS: White blood cell count of 5.8, hemoglobin 12.5, hematocrit 37.8, MCV 89.8, platel et count of 243,000. Chemistry: Serum sodium 144, potassium 3.1, chloride 106, bicarbonate 29, BUN of 8, creatinine 0.74, blood sugar 96. CPK #1 of 1536, #2 of 1284, #3 of 594. Troponin level less than 0.012. Total bilirubin 0.1, AST 69, ALT 48, alkaline phosphatase 48. IMAGING: Please refer to extensive dictations concerning imaging study essentially chest x-ray, bra in CT, C-spine CT and thoracic spine CT do not show acute serious pathology. ASSESSMENT AND PLAN: This is a 56-year-old gentleman who has chronic pain and is being seen by 2 ysicians, receiving opioids. He also has a past medical history of both opioid abuse and intravenou s drug use, last time using heroin and cocaine approximately 1 year ago, although he is a poor histo angie. His urine drug screen is negative for opioids, benzodiazepines, cocaine, amphetamines, cannab inoids. The location of his pain, the character of his pain, intensity of his pain: Locations is l eft side of his neck, character of the pain is a gnawing type of discomfort, severity is 5/10, but h as been alleviated successfully with the use of methadone. He has been in a treatment program. He has a history of substance abuse and is receiving his medications from 2 different physicians. The pain is alleviated with current medications. It is somewhat unclear why he is seeing 2 different pa in management physician. However, rating time of intervention, p.r.n. interventions, time of reass essment, pain rating side effects, effects of function all indicate that patient has more radicular type pain from prior cervical spine injury, post cervical spine stabilization surgery approximately 2 years ago. I would suggest at this time since he is being seen in the methadone maintenance clini c, just restarting him on his methadone and restarting him back on his usual medications. I would s trongly suggest not prescribing any opioids at the time he is discharged, but just making sure he un derstands to go back to see his pain management doctor at the [facility]. Dictated By: GUILLAUME HAQUE MD, LP/LISBETH Conf#: [id number] DID#: [id number]
[2016-12-07] MEDS ORDERED: METHADONE 10 MG TAB PO SCH (15:30)
--- NOTE | 2016-12-07 16:43 | PN ---
Date/Time of Note Date/Time of Note DATE: 12/07/16 TIME: 16:40 Assessment/Plan VTE Prophylaxis VTE Prophylaxis Intervention: SCD's Lines/Catheters IV Catheter Type (from Nrsg): Peripheral IV Assessment/Plan Chief Complaint/Hosp Course 1. Acute renal failure-resolved with IVF 2. Mental confusion-resolved 3. Neck pain with upper extremity paresthesias -CT Neck shows loosening of hardware in C-spine -Consult with Dr Villagomez appreciated, no further diagnostics at this time line , continue PT -Consult with pain specialist Dr. Fernandez appreciated 4. Mild hypoxemia-resolved 5. Falls, possibly related to neck pain, possibly 2/2 IVDU Dispo-DC in a.m. PPx- SCD's Problems: Subjective 24 Hr Interval Summary Musculoskeletal: neck pain Exam/Review of Systems Vital Signs Vitals Vital Signs Date Time Temp Pulse Resp B/P Pulse Ox O2 Delivery O2 Flow Rate FiO2 12/07/16 07:58 98.1 64 20 152/73 98 12/06/16 19:57 Room Air 12/05/16 03:24 2.0 Intake and Output 12/06/16 12/06/16 12/07/16 15:00 23:00 07:00 Intake Total 1000 ml 1040 ml 480 ml Output Total 500 ml Balance 1000 ml 1040 ml -20 ml Exam Constitutional: alert Respiratory: clear to auscultation Cardiovascular: regular rate and rhythm Gastrointestinal: soft, No distended Musculoskeletal: nl extremities to inspection Results Result Diagram: 12/07/16 0522 12/07/16 0522 Results 24 hrs Laboratory Tests Test 12/07/16 05:22 White Blood Count 5.8 Red Blood Count 4.21 L Hemoglobin 12.5 L Hematocrit 37.8 L Mean Corpuscular Volume 89.8 Mean Corpuscular Hemoglobin 29.7 Mean Corpuscular Hemoglobin Concent 33.1 Red Cell Distribution Width 13.6 Platelet Count 243 # Mean Platelet Volume 11.3 H Neutrophils % 39.9 Lymphocytes % 41.0 Monocytes % 12.9 H Eosinophils % 5.2 Basophils % 0.7 Nucleated Red Blood Cells % 0.0 Neutrophils # 2.3 Lymphocytes # 2.4 Monocytes # 0.8 Eosinophils # 0.3 Basophils # 0.0 Nucleated Red Blood Cells # 0.0 Sodium Level 144 Potassium Level 3.1 L Chloride Level 106 Carbon Dioxide Level 29 Anion Gap 12 Blood Urea Nitrogen 8 # Creatinine 0.74 Glucose Level 96 # Calcium Level 8.8 Phosphorus Level 3.0 Magnesium Level 1.7 Medications Medications Current Medications Sodium Chloride (NS) 1,000 ml @ 100 mls/hr Q10H IV Last administered on 10:44; Admin Dose 100 MLS/HR; Start 12/05/16 at 05:14 Ondansetron HCl (Zofran Inj) 4 mg Q6H PRN IV NAUSEA AND/OR VOMITING; Start 12/05 at 05:30 Acetaminophen (Tylenol Tab) 650 mg Q6H PRN PO PAIN LEVEL 1-3 OR FEVER Last administered on 12/06/16 21:25; Admin Dose 650 MG; Start 12/05/16 at 05:30 Amlodipine Besylate (Norvasc) 10 mg DAILY PO Last administered on 12/07/16 08: 41; Admin Dose 10 MG; Start 12/05/16 at 09:00 Aspirin (Halfprin) 81 mg DAILY PO Last administered on 12/07/16 08:43; Admin Dose 81 MG; Start 12/05/16 at 09:00 Bupropion HCl (Wellbutrin Sr) 200 mg BID PO Last administered on 12/07/16 08: 43; Admin Dose 200 MG; Start 12/05/16 at 09:00 Gabapentin (Neurontin) 600 mg TID PO Last administered on 12/07/16 13:08; Admin Dose 600 MG; Start 12/05/16 at 09:00 Lamotrigine (Lamictal) 150 mg QHS PO Last administered on 12/06/16 21:54; Admin Dose 150 MG; Start 12/05/16 at 21:00 Sertraline HCl (Zoloft) 50 mg DAILY PO Last administered on 12/07/16 08:43; Admin Dose 50 MG; Start 12/05/16 at 09:00 Doxepin HCl (Sinequan) 50 mg HS PO Last administered on 12/06/16 21:25; Admin Dose 50 MG; Start 12/05/16 at 21:00 Famotidine (Pepcid) 20 mg DAILY PO Last administered on 12/07/16 08:43; Admin Dose 20 MG; Start 12/06/16 at 09:00 Methadone HCl (Methadone) 40 mg AM PO ; Start 12/07/16 at 15:30; Status UNV JOSE DAVID YANG Dec 07, 2016 16:43
[2016-12-07 20:23] VITALS: BP 142/84; RESP 18
[2016-12-07] MEDS: LAMOTRIGINE 100 MG TAB PO SCH (20:38)
[2016-12-07] MEDS: DOXEPIN 25 MG CAP PO SCH (20:38)
[2016-12-07] MEDS: ACETAMINOPHEN 325 MG TAB PO PRN (20:38)
[2016-12-08 06:12] LABS: POTASSIUM 3.8 mmol/L (3.5-5.1)
[2016-12-08 06:15] LABS: CREATININE 0.71 mg/dl (0.61-1.24)
[2016-12-08 06:16] LABS: MAGNESIUM 2.1 mg/dl (1.7-2.5)
[2016-12-08] MEDS: SOD CHLORIDE 0.9% 1,000 ML IV SCH (07:08)
[2016-12-08 07:12] VITALS: BP 160/82; RESP 14
[2016-12-08] MEDS: ASPIRIN (EC) 81 MG TAB PO SCH (09:27)
[2016-12-08] MEDS: SERTRALINE 50 MG TAB PO SCH (09:28)
[2016-12-08] MEDS: BUPROPION (SR) 100 MG TAB PO SCH (09:28)
[2016-12-08] MEDS: AMLODIPINE 10 MG TAB PO SCH (09:28)
[2016-12-08] MEDS: GABAPENTIN 300 MG CAP PO SCH (09:28)
[2016-12-08] MEDS: FAMOTIDINE 20 MG TAB PO SCH (09:28)
--- NOTE | 2016-12-08 09:53 | PDOCDIS ---
Discharge Instructions CONDITION Patient Condition: Good HOME CARE INSTRUCTIONS: Diet Instructions: Regular ACTIVITY: Activity Restrictions: No Restrictions FOLLOW UP/APPOINTMENTS Appointments F/U WITH YOUR PCP IN 1-2 WEEKS JOSE DAVID YANG Dec 08, 2016 09:53
[2016-12-08 10:30] VITALS: BP 138/72; PULSE 66; RESP 18
--- NOTE | 2016-12-08 10:45 | CONS ---
Date/Time of Note Date/Time of Note DATE: 12/08/16 TIME: 10:44 Assessment/Plan Assessment/Plan Chief Complaint/Hosp Course This is a 56-year-old male well-known to me who has been admitted to [facility] for acute renal failure. He has undergone a CT of the cervical spine which reportedly demonstrates some loosening of his cervical spine hardware. I have ordered x-rays of the cervical spine, and will complete an orthopedic consultation tomorrow morning. Problems: Consultation Date/Type/Reason Admit Date/Time Dec 05, 2016 at 17:34 Initial Consult Date 12/06/16 Type of Consultation: Orthopedic 24 HR Interval Summary Free Text/Dictation The patient remains symptomatic with neck pain without significant radicular component. His examination is unchanged and neurovascular structures are intact distally. He is scheduled for discharge home later today, and arrangements for outpatient follow-up in my office have been established. Thank you for the opportunity of participating in the care of this pleasant gentleman. Exam/Review of Systems Vital Signs Vitals Vital Signs Date Time Temp Pulse Resp B/P Pulse Ox O2 Delivery O2 Flow Rate FiO2 12/08/16 07:12 98.4 68 14 160/82 97 12/06/16 19:57 Room Air 12/05/16 03:24 2.0 Intake and Output 12/07/16 12/07/16 12/08/16 14:59 22:59 06:59 Intake Total 1000 ml 2470 ml 500 ml Balance 1000 ml 2470 ml 500 ml Results Result Diagram: 12/07/16 0522 12/08/16 0510 Results 24 hrs Laboratory Tests Test 12/08/16 05:10 Sodium Level 143 Potassium Level 3.8 Chloride Level 107 Carbon Dioxide Level 27 Anion Gap 13 Blood Urea Nitrogen 9 Creatinine 0.71 Glucose Level 88 Calcium Level 9.0 Magnesium Level 2.1 Medications Medications Current Medications Sodium Chloride (NS) 1,000 ml @ 100 mls/hr Q10H IV Last administered on t 07:08; Admin Dose 100 MLS/HR; Start 12/05/16 at 05:14 Ondansetron HCl (Zofran Inj) 4 mg Q6H PRN IV NAUSEA AND/OR VOMITING; Start 12/05 at 05:30 Acetaminophen (Tylenol Tab) 650 mg Q6H PRN PO PAIN LEVEL 1-3 OR FEVER Last administered on 12/07/16 20:38; Admin Dose 650 MG; Start 12/05/16 at 05:30 Amlodipine Besylate (Norvasc) 10 mg DAILY PO Last administered on 12/08/16 09: 28; Admin Dose 10 MG; Start 12/05/16 at 09:00 Aspirin (Halfprin) 81 mg DAILY PO Last administered on 12/08/16 09:27; Admin Dose 81 MG; Start 12/05/16 at 09:00 Bupropion HCl (Wellbutrin Sr) 200 mg BID PO Last administered on 12/08/16 09: 28; Admin Dose 200 MG; Start 12/05/16 at 09:00 Gabapentin (Neurontin) 600 mg TID PO Last administered on 12/08/16 09:28; Admin Dose 600 MG; Start 12/05/16 at 09:00 Lamotrigine (Lamictal) 150 mg QHS PO Last administered on 12/07/16 20:38; Admin Dose 150 MG; Start 12/05/16 at 21:00 Sertraline HCl (Zoloft) 50 mg DAILY PO Last administered on 12/08/16 09:28; Admin Dose 50 MG; Start 12/05/16 at 09:00 Doxepin HCl (Sinequan) 50 mg HS PO Last administered on 12/07/16 20:38; Admin Dose 50 MG; Start 12/05/16 at 21:00 Famotidine (Pepcid) 20 mg DAILY PO Last administered on 12/08/16 09:28; Admin Dose 20 MG; Start 12/06/16 at 09:00 Methadone HCl (Methadone) 40 mg AM PO ; Start 12/07/16 at 15:30; Status UNELLYN BOYCE MD Dec 08, 2016 10:45
--- NOTE | 2016-12-08 14:12 | DS ---
DATE OF ADMISSION: 12/05/2016 DATE OF DISCHARGE: 12/08/2016 DISCHARGE DIAGNOSES 1. Acute renal failure, resolved with IV fluid, and secondary dehydration. 2. Altered mental status, resolved, likely secondary to substance abuse. 3. Neck pain with upper extremity parathesias. This is a chronic issue. CT neck does show looseni ng of hardware in C-spine. The patient was evaluated by Dr. Villagomez who operated on the patient. The patient will follow up with him as an outpatient. 4. Falls secondary to neck pain and IV drug use. The patient advised to stop using. 5. Substance abuse secondary to heroin abuse. The patient advised to seek treatment for giving up heroin. HOSPITAL COURSE: The patient is a 56-year-old male with history of heroin abuse, chronic pain with cervical spine surgery in the past. The patient presents with frequent falls and paresthesias with chronic neck pain, with altered mental status and acute kidney injury. The patient's creatinine kin ase was slightly elevated on arrival. His creatinine was also elevated, but improved with IV fluids . The patient had a cervical spine CT that showed possible hardware loosening around C7. There was no evidence of cervical spine fracture or subluxation. The patient also had thoracic spine CT, pepe wed no evidence of any posttraumatic spinal abnormality. There was no significant stenosis. The hortencia martin was seen by Dr. Villagomez who did the cervical surgery in 2013. There was no indication for an y immediate intervention and Dr. Villagomez recommend to follow up with him as an outpatient. The gabriela alamo was also seen by pain specialist, Dr. Madrid, as the patient was having chronic pain. He davila s have pain medication at home. He is taking methadone to help him get off his heroin. He was advi sed to seek a drug rehab program. He stated that he will consider it. The patient was felt to be st able for discharge. On the day of discharge, the patient's vitals, labs, physical exam were stable. He had no acute complaints. Questions answered. CONDITION ON DISCHARGE: Stable. DISPOSITION: To home. MEDICATIONS: The patient to continue his usual home medications. No new medications prescribed. FOLLOWUP: The patient should follow up with his PCP in 1 to 2 weeks. Greater than 30 minutes was spent coordinating discharge of the patient. Dictated By: JOSE DAVID YANG MD BS/NTS Conf#: [id number] [facility]#: [id number]
== END 2016-12-08 11:45 | disposition home or self-care (01) | DRG 683 ==
LOC: FTE 20:56 → MS2 12-05 02:30 → OBSVTOIN 12-05 17:34
PROVIDERS: ADMIT Family Medicine; ATTEND Family Medicine
DX: N17.9 Acute kidney failure, unspecified (principal); M62.82 Rhabdomyolysis; T84.226A Displacement of internal fixation device of vertebrae, initial encounter; G89.29 Other chronic pain; M54.2 Cervicalgia; R09.02 Hypoxemia; R41.82 Altered mental status, unspecified; R20.8 Other disturbances of skin sensation; R35.1 Nocturia; F11.10 Opioid abuse, uncomplicated; Z86.73 Personal history of transient ischemic attack (TIA), and cerebral infarction without residual deficits; Z91.81 History of falling; Z86.59 Personal history of other mental and behavioral disorders
CPT/HCPCS: 70450; 71010; 72125; 72128; 76775; 80048; 80053; 80306; 80307; 81001; 81003; 82550; 82553; 83605; 83690; 83735; 84100; 84153; 84154; 84443; 84484; 85025; 85610; 85730; 93005; 96374; 96375; 97116; 97164; 97530; A4310; G0378; J2270; J2405; J3475; J7030

== ENCOUNTER 2017-10-07 08:36 | Emergency (ER) | END 2017-10-07 11:23 | disposition home or self-care (01) ==

== ENCOUNTER 2018-03-04 09:05 | Emergency (ER) | END 2018-03-04 11:05 | disposition home or self-care (01) ==

== ENCOUNTER 2018-06-15 17:03 | Observation (INO) | END 2018-06-16 18:30 | disposition home or self-care (01) ==

== ENCOUNTER 2018-07-29 17:31 | Observation (INO) | END 2018-07-30 18:47 | disposition home or self-care (01) ==

== ENCOUNTER 2018-08-15 18:04 | Observation (INO) | END 2018-08-17 17:33 | disposition home or self-care (01) ==